=== PATIENT | female | born 1985 | race Hispanic/Latino ===

== ENCOUNTER 2019-04-03 11:46 | Emergency (ER) | payer BC ==
[~2019-04-03] VITALS: Ht 177.8 cm; Wt 95.3 kg
--- OUTSIDE RECORDS SUMMARY | 2019-04-03 11:49 | XMS REPORT ---
Author Author [facility] Address Unknown Phone Unavailable Care Team Providers Care Quality Eng Name Role Phone Unavailable Unavailable Payers Payer Name Policy Type Policy Number Effective Date Expiration Date Problems This patient has no known problems. Allergies, Adverse Reactions, Alerts Allergy Name Allergy Type Status Severity Reaction(s) Onset Date Inactive Date Treating Clinician Comments No Known Allergies DA Active U 2016-02-15 00:00:00 Medications This patient has no known medications.
[2019-04-03] MEDS ORDERED: IBUPROFEN200 MG PO (12:32)
--- NOTE | 2019-04-03 13:06 | Diagnostic Imaging Report ---
HAND 3 VIEW LT - [facility] - 3 views HISTORY: Pain. sprained wrist COMPARISON: None available. FINDINGS: Bones: No acute displaced fracture. Osseous alignment is within normal limits. Joints: The joint spaces are well-maintained. Soft tissues: The soft tissues appear unremarkable. IMPRESSION: No acute radiographic abnormality. Signed by: Dr. Juan Carlos Weinstein M.D. on 04/03/2019 1:02 PM
--- NOTE | 2019-04-03 13:06 | Diagnostic Imaging Report ---
WRIST 3VW LT - [facility] - 3 views HISTORY: Pain. sprained wrist COMPARISON: None available. FINDINGS: Bones: No acute displaced fracture. Osseous alignment is within normal limits. Joints: The joint spaces are well-maintained. Soft tissues: The soft tissues appear unremarkable. IMPRESSION: No acute radiographic abnormality. Signed by: Dr. Juan Carlos Weinstein M.D. on 04/03/2019 1:03 PM
[2019-04-03 13:43] VITALS: BP 127/80
== END 2019-04-03 13:49 | disposition left against medical advice (07) ==
LOC: FSED 11:46
DX: M25.532 Pain in left wrist (principal)